=== PATIENT | female | born 1960 | race Caucasian/White ===

== ENCOUNTER 2016-09-11 14:58 | Emergency (ER) | payer OTHER ==
[2016-09-11 15:20] VITALS: BP 130/74
--- NOTE | 2016-09-11 15:51 | EDM.PDOC ---
ED HPI GENERAL MEDICAL PROBLEM - General Chief Complaint: Head Injury Stated Complaint: FALL ON ROCKS Time Seen by Provider: 09/11/16 15:46 Source of Information: Reports: Patient, Family (daughter) History Limitations: Reports: No Limitations - History of Present Illness INITIAL COMMENTS - FREE TEXT/NARRATIVE: Fell today while talking on her phone and slipped on some large rocks. Landed on her face and left side. Abrasion to face, nose and left ear as well as left shoulder and rios. No loss of consciousness. No nausea at this time. Does take an aspirin. Able to move left shoulder without difficulty. Onset: Today Onset Date: 09/11/16 Location: Reports: Face, Upper Extremity, Left Quality: Reports: Ache Severity: Mild Improves with: Reports: None Worsens with: Reports: Movement Associated Symptoms: Reports: No Other Symptoms - Related Data Allergies Allergy/AdvReac Type Severity Reaction Status Date / Time No Known Allergies Allergy Verified 09/11/16 15:35 Home Meds: Home Meds Amitriptyline [Elavil] 09/11/16 [History] Aspirin 09/11/16 [History] Rosuvastatin [Crestor] 09/11/16 [History] Past Medical History - Past Surgical History HEENT Surgical History: Reports: Tonsillectomy Female Surgical History: Reports: Hysterectomy Social & Family History - Tobacco Use Smoking Status *Q: Current Every Day Smoker Years of Tobacco use: 35 Packs/Tins Daily: 0.5 ED ROS GENERAL - Review of Systems Review Of Systems: See Below Constitutional: Reports: No Symptoms HEENT: Reports: No Symptoms, Other (laceration to left ear and bridge of nose, abrasion to forehead) Respiratory: Reports: No Symptoms Cardiovascular: Reports: No Symptoms GI/Abdominal: Reports: No Symptoms Musculoskeletal: Reports: Shoulder Pain (left) Skin: Reports: Other (bruising to forehead, abrasion to forehead) Neurological: Reports: No Symptoms Psychiatric: Reports: No Symptoms ED EXAM, HEAD INJURY - Physical Exam Exam: See Below Exam Limited By: No Limitations General Appearance: Alert, WD/WN, No Apparent Distress Head: Facial Abrasions (bridge of nose with small laceration), Facial Lacerations, Facial Tenderness Ears: Other (left ear with laceration) Nose: Other (small laceration to bridge of nose) Throat/Mouth: Normal Inspection, Normal Lips, Normal Teeth, Normal Gums, Normal Oropharynx, Normal Voice, No Airway Compromise Neck: Non-Tender, Full Range of Motion, Normal Alignment, Normal Inspection Respiratory: No Respiratory Distress, Lungs Clear, Normal Breath Sounds, No Accessory Muscle Use, Chest Non-Tender Cardiovascular: Normal Peripheral Pulses, Regular Rate, Rhythm, No Edema, No Gallop, No JVD, No Murmur, No Rub Extremities: Other (abrasion to left shoulder. ROM normal. Abrasion to left rios. 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 II-XII nml As Tested, No Motor/Sensory Deficits, Alert, Normal Mood/Affect, Oriented x 3 ED LACERATION/WOUND & JALIL PROC - Laceration/Wound Repair Left Midline Ear Lac/wound length in cm: 1 Appearance: Superficial Distal NVT: Neuro & Vascular Intact, No Tendon Injury Anesthetic Type: Other (none) Skin Prep: Chlorhexidine (Hibiciens) Exploration/Debridement/Repair: Multiple Flaps Aligned Closed with: Dermabond Sterile Dressing Applied: None Tetanus Status Addressed: Yes Complications: No Progress/Comments: Last TDap 2016 Course - Vital Signs Last Recorded V/S: Last Vital Signs Temp 99.1 F 09/11/16 15:19 Pulse 69 09/11/16 15:19 Resp 18 09/11/16 15:19 BP 130/74 09/11/16 15:19 Pulse Ox 96 09/11/16 15:19 Departure - Departure Time of Disposition: 16:08 Disposition: Home, Self-Care 01 Condition: good Clinical Impression: Fall (on)(from) incline, initial encounter, Nasal contusion Laceration of ear Qualifiers: Encounter type: initial encounter Laterality: left Qualified Code(s): S01.312A - Laceration without foreign body of left ear, initial encounter - Discharge Information Instructions: Head Injury, Adult, [id number] Referrals: PCP,None [Primary Care Provider] - Forms: ED Department Discharge Additional Instructions: Reviewed wound care after Dermabond. Reviewed head injury protocol. Pt to hold aspirin x 1 week. May use Tylenol as needed for pain. Ice pack given. May require home care aide for stiffness following injury. Discussed safety when using her phone. To followup if notes s/s of infection or vomiting x 2 or amnesia with neurologic symptoms. Pt's daughter and pt voice understanding. - Problem List & Annotations (1) Fall (on)(from) incline, initial encounter SNOMED Code(s): 306345850 Code(s): W10.2XXA - FALL (ON)(FROM) INCLINE, INITIAL ENCOUNTER Status: Acute Priority: Medium Current Visit: Yes (2) Laceration of ear SNOMED Code(s): 84580917 Code(s): S01.319A - LACERATION WITHOUT FOREIGN BODY OF UNSP EAR, INIT ENCNTR Status: Acute Current Visit: Yes Qualifiers: Encounter type: initial encounter Laterality: left Qualified Code(s): S01.312A - Laceration without foreign body of left ear, initial encounter (3) Nasal contusion SNOMED Code(s): 19973962 Code(s): S00.33XA - CONTUSION OF NOSE, INITIAL ENCOUNTER Status: Acute Current Visit: Yes
== END 2016-09-11 16:26 | disposition home or self-care (01) ==
LOC: JP.ED 14:58
DX: S01.312A Laceration without foreign body of left ear, initial encounter (principal); S01.21XA Laceration without foreign body of nose, initial encounter; S40.212A Abrasion of left shoulder, initial encounter; F17.210 Nicotine dependence, cigarettes, uncomplicated; Z79.82 Long term (current) use of aspirin; Z90.710 Acquired absence of both cervix and uterus; Z90.89 Acquired absence of other organs; W19.XXXA Unspecified fall, initial encounter; W01.0XXA Fall on same level from slipping, tripping and stumbling without subsequent striking against object, initial encounter
CPT/HCPCS: 12011; 99283-25